=== PATIENT | female | born 1965 | race Caucasian/White ===

== ENCOUNTER 2019-03-10 20:02 | Emergency (ER) | payer OTHER ==
[2019-03-10 21:03] LABS: APPEARANCE,URINE CLOUDY; BILIRUBIN,URINE SMALL (NEGATIVE); COLOR,URINE AMBER; GLUCOSE, URINE NEGATIVE (NEGATIVE); KETONES,URINE 20 mg/dL (NEGATIVE); LEUKOCYTE ESTERASE,URINE NEGATIVE (NEGATIVE); NITRITE,URINE NEGATIVE (NEGATIVE); PROTEIN,URINE 100 mg/dL (NEGATIVE); UROBILINOGEN,URINE NEGATIVE mg/dL (<2.0)
[2019-03-10 21:49] LABS: HEMATOCRIT 31.2 % (36.0-47.0); HEMOGLOBIN 9.5 g/dL (12.0-15.5); MEAN CORPUSCULAR HEMOGLOBIN 19.4 pg (27.0-33.4); MEAN CORPUSCULAR HGB CONC 30.4 g/dL (32.0-36.0); PLATELET COUNT 564 10^3/uL (150-450); RED CELL DISTRIBUTION WIDTH 17.7 % (11.5-14.0); WHITE BLOOD COUNT 8.1 10^3/uL (4.0-10.5)
[2019-03-10 21:50] LABS: MEAN CORPUSCULAR VOLUME 64 fl (80-97)
[2019-03-10 22:04] LABS: ALANINE AMINOTRANSFERASE 21 U/L (9-52); ALBUMIN 4.2 g/dL (3.5-5.0); ALKALINE PHOSPHATASE 116 U/L (38-126); ANION GAP 13 (5-19); ASPARTATE AMINO TRANSFERASE 36 U/L (14-36); BILIRUBIN,DIRECT 0.3 mg/dL (0.0-0.4); BILIRUBIN,TOTAL 0.4 mg/dL (0.2-1.3); BLOOD UREA NITROGEN 15 mg/dL (7-20); CALCIUM 10.9 mg/dL (8.4-10.2); CARBON DIOXIDE 26 mmol/L (22-30); CHLORIDE 101 mmol/L (98-107); GLUCOSE 96 mg/dL (75-110); LIPASE 128.6 U/L (23-300); POTASSIUM 4.4 mmol/L (3.6-5.0); SODIUM 140.2 mmol/L (137-145); TOTAL PROTEIN 7.2 g/dL (6.3-8.2)
[2019-03-10 22:07] LABS: ABSOLUTE LYMPHOCYTES# (MANUAL) 1.1 10^3/uL (0.5-4.7); ABSOLUTE MONOCYTES # (MANUAL) 0.6 10^3/uL (0.1-1.4); ABSOLUTE NEUTROPHILS# (MANUAL) 6.2 10^3/uL (1.7-8.2); BAND NEUTROPHILS % (MANUAL) 1 % (3-5); BASOPHILS % (MANUAL) 1 % (0-2); EOSINOPHILS % (MANUAL) 1 % (0-6); LYMPHOCYTES % (MANUAL) 13 % (13-45); MONOCYTES % (MANUAL) 8 % (3-13); SEGMENTED NEUTROPHILS % (MAN) 76 % (42-78); TOTAL CELLS COUNTED 100
[2019-03-10 22:09] LABS: PLATELET COMMENT INCREASED; STOMATOCYTES SLIGHT
[2019-03-10 22:10] LABS: ANISOCYTOSIS 1+; HYPOCHROMASIA 2+; OVALOCYTES SLIGHT; POIKILOCYTOSIS SLIGHT; TARGET CELLS 1+
--- NOTE | 2019-03-11 01:02 | RADIOLOGY REPORT (SQ) ---
EXAM: CT abdomen and pelvis with IV contrast CLINICAL DATA: 53-year-old female with diffuse abdominal pain and hematuria TECHNICAL DATA: Axial CT imaging of the abdomen and pelvis was performed following the administration of intravenous contrast.. Sagittal and coronal reconstructed images were then performed. The CT study is performed according to ALARA (as low as reasonably achievable) or ALARA/IMAGE GENTLY, with automatic adjustment of mA and/or kV according to patient size. Performed on: 03/11/2019 at 12:04 AM. Comparison: None FINDINGS: Lung bases: The lung bases are grossly clear. There is a 0.6 cm right basilar pleural-based nodule best appreciated on series 4, image 10 and series 601, image 39. This could represent a small focal pleural parenchymal scar. Liver:There is a hypodense lesion in the lateral segment of the left hepatic lobe measuring approximately 6.3 x 4.4 x 5.3 cm and an additional 0.6 cm focal area of decreased attenuation in the lateral segment of the left hepatic lobe. There is no evidence of intrahepatic duct dilatation. The portal and hepatic veins are patent. The liver is otherwise grossly unremarkable. There does appear to be periportal lymphadenopathy. Spleen: There is a lobulated hypodense lesion in the splenic hilum measuring approximately 5.2 x 3.0 cm in cross-sectional diameter by approximately 3.8 cm in craniocaudal dimension. Gallbladder and bile duct: The gallbladder is well distended and unremarkable. There is no biliary ductal dilatation. Pancreas: The pancreas is grossly normal in size and configuration. Adrenal Glands:The adrenal glands are normal in size and configuration. Kidneys:The kidneys are normal in size and configuration. There is no evidence of hydronephrosis. There is nonobstructing bilateral nephrolithiasis. No definite solid or cystic renal mass lesions are identified. Stomach: There is a moderate hiatal hernia and ascites extends through the diaphragmatic defect. Distal paraesophageal lymph nodes are not excluded. Bowel:The bowel gas pattern is non specific and non obstructive. Appendix: There is no CT evidence of acute appendicitis. Free air:There is no evidence of free air. Free fluid: There is a small to moderate volume of ascites. Vasculature: The aorta is normal in caliber and contour. The inferior vena cava is grossly unremarkable. Lymphadenopathy: There is retroperitoneal lymphadenopathy. Bladder: The bladder is partially distended and smooth in contour. Reproductive: The uterus is heterogeneous in attenuation and there are multiple large lobulated mixed attenuation soft tissue mass lesion surrounding the uterus most consistent with cancer which may be ovarian or uterine in origin. The largest soft tissue mass is located in the left hemiabdomen and pelvis and measures approximately 12.7 x 8.7 cm in cross-sectional diameter by approximately 15 cm in craniocaudal dimension. Bones: No acute osseous abnormalities are identified. Soft tissues: There are multiple intraperitoneal soft tissue mass lesions particularly along the anterior peritoneal cavity, lateral margin of the liver as well as within the pericardial space adjacent to the right heart border. There is scalloping along the posterior lateral margin of the liver. These findings are most consistent with peritoneal and pericardial metastases. IMPRESSION: 1. Large lobulated heterogeneous soft tissue mass arising from the pelvis most consistent with carcinoma either of uterine or ovarian origin. 2. Small to moderate volume of ascites. 3. Multiple peritoneal and pericardial soft tissue mass lesions most consistent with metastatic disease. 4. Hypodense lesions within the liver and spleen concerning for metastases. 5. Retroperitoneal, periportal and distal paraesophageal lymphadenopathy. 6. Moderate hiatal hernia. 7. Nonobstructing bilateral nephrolithiasis 8. Approximately 0.6 cm right basilar pleural-based nodule possibly representing a pleural parenchymal scar. These critical findings were discussed with Dr. Singh on 03/10/2019 at 11:50 PM Central time
--- NOTE | 2019-03-11 01:56 | ER Document Report ---
ED General - General Chief Complaint: Abdominal Pain Stated Complaint: ABDOMINAL PAIN Time Seen by Provider: 03/10/19 20:38 Primary Care Provider: SAKINA CASTRO MD [ACTIVE STAFF] - Follow up tomorrow Notes: Patient is a 53-year-old female without chronic medical problems, does not follow with a primary care physician, presents to the emergency department due to several months of progressively worsening abdominal swelling and pain. The patient states that the pain is a aching, cramping, mild to moderate, diffuse, generalized abdominal discomfort that seems to come and go. No obvious exacerbating or alleviating factors. Patient states that she is also noted some swelling particularly to the left lower portion of her abdomen. Patient does not follow with a physician, has not had any screening exams completed. She does know that she is had approximately a 30 pound weight loss since June 2018. She has also begun having vaginal bleeding within the last several months but states that she went through menopause in her mid 40s. Denies fever, vomiting or diarrhea. No dysuria. - Related Data Allergies/Adverse Reactions: No Known Allergies Allergy (Unverified 03/10/19 20:29) Past Medical History - General Information source: Patient - Social History Smoking Status: Never Smoker Chew tobacco use (# tins/day): No Frequency of alcohol use: None Drug Abuse: None Lives with: Alone Family History: Reviewed & Not Pertinent Patient has suicidal ideation: No Patient has homicidal ideation: No Renal/ Medical History: Denies: Hx Peritoneal Dialysis Review of Systems - Review of Systems Notes: Constitutional: Negative for fever. HENT: Negative for sore throat. Eyes: Negative for visual changes. Cardiovascular: Negative for chest pain. Respiratory: Negative for shortness of breath. Gastrointestinal: Positive for abdominal pain and swelling Genitourinary: Positive for vaginal bleeding Musculoskeletal: Negative for back pain. Skin: Negative for rash. Neurological: Negative for headaches, weakness or numbness. 10 point ROS negative except as marked above and in HPI. Physical Exam - Vital signs Vitals: Temp Pulse Resp BP Pulse Ox 98.8 F 113 H 20 152/96 H 98 03/10/19 20:08 03/10/19 20:08 03/10/19 20:08 03/10/19 20:08 03/10/19 20:08 Interpretation: Hypertensive, Tachycardic Notes: PHYSICAL EXAMINATION: GENERAL: Well-appearing, well-nourished and in no acute distress. HEAD: Atraumatic, normocephalic. EYES: Pupils equal round and reactive to light, extraocular movements intact, sclera anicteric, conjunctiva are normal. ENT: nares patent, oropharynx clear without exudates. Moist mucous membranes. NECK: Normal range of motion, supple without lymphadenopathy LUNGS: Breath sounds clear to auscultation bilaterally and equal. No wheezes rales or rhonchi. HEART: Regular rate and rhythm without murmurs ABDOMEN: Soft, mild generalized tenderness, some fullness to the left lower pelvis, no focal tenderness, normoactive bowel sounds. No guarding, no rebound. No masses appreciated. EXTREMITIES: Normal range of motion, no pitting or edema. No cyanosis. NEUROLOGICAL: No focal neurological deficits. Moves all extremities spontaneously and on command. PSYCH: Normal mood, normal affect. SKIN: Warm, Dry, normal turgor, no rashes or lesions noted. Course - Re-evaluation Re-evalutation: 03/11/19 01:56 Patient presents with weight loss, vaginal bleeding, abdominal swelling and discomfort ongoing for the last several months but worse in the past several weeks. The patient's initial history is very worrisome for a genitourinary malignancy given that she began having vaginal bleeding several months ago but had not previously had a cycle in almost 10 years. Because of the associated weight loss and abdominal fullness on exam a CT scan of the abdomen pelvis with IV contrast was ordered. 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 The metastases are noted to the liver, spleen and multiple lymph nodes throughout the abdomen. I have disclosed the findings of the CT scan to the patient and informed her that it appears she has stage IV metastatic cancer. I did discuss with Dr. Castro the EXAMINER RATING CLERK on-call who states the patient will be seen in the office tomorrow for initiation of a tissue diagnosis and for referral to [facility]. At this time will discharge with return precautions and follow-up recommendations. Verbal discharge instructions given a the bedside and opportunity for questions given. Medication warnings reviewed. Patient is in agr eement with this plan and has verbalized understanding of return precautions and the need for primary care follow-up in the next 24-72 hours. - Vital Signs Vital signs: Temp Pulse Resp BP Pulse Ox 98.1 F 118 H 18 161/103 H 97 03/11/19 02:05 03/11/19 02:05 03/11/19 02:05 03/11/19 02:05 03/11/19 02:05 - Laboratory Result Diagrams: 03/10/19 21:30 03/10/19 21:30 Laboratory results interpreted by me: 03/10/19 03/10/19 03/10/19 20:25 21:30 21:30 Hgb 9.5 L Hct 31.2 L MCV 64 L MCH 19.4 L MCHC 30.4 L RDW 17.7 H Plt Count 564 H Band Neutrophils % 1 L Calcium 10.9 H Urine Protein 100 H Urine Ketones 20 H Urine Blood MODERATE H Urine Bilirubin SMALL H - Diagnostic Test Radiology reviewed: Reports reviewed Discharge - Discharge Clinical Impression: Cancer of female genitourinary tract, Metastatic cancer, Generalized abdominal pain Ascites Qualifiers: Ascites type: malignant Qualified Code(s): R18.0 - Malignant ascites Condition: Fair Disposition: HOME, SELF-CARE Additional Instructions: Unfortunately your CT scan demonstrates findings consistent with metastatic cancer likely of the ovaries or uterus. There are metastases to your liver and spleen. You need to follow-up in the women's clinic tomorrow for the next stages of initiating diagnosis and treatment. I have spoken to Dr. Shannan biggs, she states that you should contact the office at 9 AM tomorrow and get an appointment. The office should be expecting your call. Please return if you develop any worsening abdominal pain, persistent vomiting, fever greater than 101 F, pass out, or have any other symptoms that are worrisome to you. Referrals: SAKINA CASTRO MD [ACTIVE STAFF] - Follow up tomorrow
[2019-03-11 02:22] VITALS: BP 161/103
[2019-03-11 11:51] LABS: PATH REVIEW PATHOLOGIST REVIEWED
== END 2019-03-11 02:22 | disposition home or self-care (01) ==
LOC: ER 20:02
DX: C57.9 Malignant neoplasm of female genital organ, unspecified (principal); C78.7 Secondary malignant neoplasm of liver and intrahepatic bile duct; C78.89 Secondary malignant neoplasm of other digestive organs; C77.9 Secondary and unspecified malignant neoplasm of lymph node, unspecified; R18.0 Malignant ascites; R10.84 Generalized abdominal pain; R63.4 Abnormal weight loss; N93.9 Abnormal uterine and vaginal bleeding, unspecified
CPT/HCPCS: 36415; 74177; 80053; 81001; 83690; 84703; 85025; 99284